=== PATIENT | female | born 1995 | race Hispanic/Latino ===

== ENCOUNTER 2022-06-07 11:05 | Outpatient (CLI) | payer OTHER, SELFPAY | END 2022-06-07 11:06 | disposition home or self-care (01) | LOC: ANHAUDIO 11:08 | PROVIDERS: PCP Physician Assistant; Visit Provider Physician Assistant | DX: H91.90 Unspecified hearing loss, unspecified ear (principal) | CPT/HCPCS: 92552; 92556; 92567 ==

== ENCOUNTER 2024-09-30 13:04 | Outpatient (CLI) | payer OTHER, SELFPAY ==
--- NOTE | ~2024-09-30 | XR_ITS ---
CHEST RADIOGRAPH, PA AND LATERAL CLINICAL HISTORY: PAIN IN RT ELBOW ARTHRITIS . COMPARISON: None available TECHNIQUE: PA and lateral views of the chest. FINDINGS The cardiomediastinal silhouette is unremarkable. The lungs are clear. Visualized osseous structures and soft tissues are unremarkable. IMPRESSION: No focal infiltrate or effusion. Reviewed, dictated and finalized at location A. ACTOR AND WRINGER OPERATOR
--- NOTE | ~2024-09-30 | XR_ITS ---
XR elbow LT min 3V Ordering provider: Erna Larson, MICHELE History: . PAIN IN RT ELBOW ARTHERITIS . Comparison: None. FINDINGS: BONES: No acute fracture or dislocation. JOINT SPACES: Normal. SOFT TISSUES: Normal. No definite joint effusion. IMPRESSION: No acute osseous abnormality left elbow. Reviewed, dictated and finalized at location A. L ERECTOR APPRENTICE
--- NOTE | ~2024-09-30 | XR_ITS ---
XR elbow RT min 3V Ordering provider: Erna Larson, MICHELE History: . PAIN IN RT ELBOW ARTHERITIS . Comparison: None. FINDINGS: BONES: No acute fracture or dislocation. JOINT SPACES: Normal. SOFT TISSUES: Unremarkable. No definite joint effusion. IMPRESSION: No acute osseous abnormality of the right elbow. Reviewed, dictated and finalized at location A. DWIDE CHIEF CREATIVE OFFICER
== END 2024-09-30 13:05 | disposition home or self-care (01) ==
LOC: ANHIMG 13:09
PROVIDERS: PCP Physician Assistant; Visit Provider Physician Assistant
DX: M25.521 Pain in right elbow (principal); M25.522 Pain in left elbow; M06.9 Rheumatoid arthritis, unspecified
CPT/HCPCS: 71046; 73080